=== PATIENT | female | born 1960 | race African-American/Black ===

== ENCOUNTER 2021-09-30 17:13 | Emergency (ER) | payer SELFPAY ==
[~2021-09-30] VITALS: Ht 160 cm; Wt 52.2 kg
[2021-09-30] MEDS ORDERED: ASPIRIN 81 MG CHEW TAB PO ONE (19:30)
[2021-09-30 19:34] LABS: BASOPHILS # (AUTO) 0.1 (0.0-0.1); BASOPHILS % 1.2 % (0.0-1.0); EOSINOPHILS # (AUTO) 0.1 (0.0-0.4); EOSINOPHILS % 1.5 % (0.0-6.0); HEMATOCRIT 35.2 % (34.2-44.1); HEMOGLOBIN 12.2 g/dL (12.0-16.0); LYMPHOCYTES # (AUTO) 1.7 (1.0-3.2); LYMPHOCYTES % 25.6 % (18.0-39.1); MEAN CORPUSCULAR HEMOGLOBIN 29.5 pg (28-32); MEAN CORPUSCULAR HGB CONC 34.7 g/dL (31-35); MONOCYTES # (AUTO) 0.5 (0.2-0.8); MONOCYTES % 6.8 % (4.4-11.3); NEUTROPHILS # (AUTO) 4.2 (2.1-6.9); NEUTROPHILS % 64.3 % (38.7-80.0); PLATELET COUNT 342 x10e3/uL (140-360); RED BLOOD COUNT 4.14 x10e6/uL (3.6-5.1)
[2021-09-30 19:36] LABS: CLARITY,URINE HAZY (CLEAR); COLOR,URINE YELLOW (YELLOW); KETONES,URINE NEGATIVE (NEGATIVE); LEUKOCYTE ESTERASE ,URINE NEGATIVE (NEGATIVE); NITRITE,URINE POSITIVE (NEGATIVE); PROTEIN,URINE DIPSTICK NEGATIVE (NEGATIVE); URINE UROBILINOGEN 0.2 mg/dL (0.2 - 1)
[2021-09-30 19:41] LABS: BACTERIA,URINE MANY /HPF; EPITHELIAL CELLS,URINE MODERATE /LPF
[2021-09-30 19:48] LABS: ALBUMIN 3.9 g/dL (3.5-5.0); ALBUMIN/GLOBULIN RATIO 1.1 (0.8-2.0); ANION GAP 16.8 mmol/L (8-16); CALCIUM 8.8 mg/dL (8.4-10.2); CREATININE, SERUM 0.59 mg/dL (0.57-1.11); POTASSIUM 3.8 mmol/L (3.5-5.1)
[2021-09-30 19:54] LABS: CREATINE KINASE MB 3.7 ng/mL (0-5.0)
[2021-09-30] MEDS ORDERED: CEPHALEXIN500 MG PO (21:11)
[2021-09-30 21:19] VITALS: BP 162/82
== END 2021-09-30 21:42 | disposition home or self-care (01) ==
LOC: ER 20:04
DX: F10.10 Alcohol abuse, uncomplicated (principal); R53.1 Weakness; N39.0 Urinary tract infection, site not specified; I10 Essential (primary) hypertension; E11.9 Type 2 diabetes mellitus without complications; F17.210 Nicotine dependence, cigarettes, uncomplicated
CPT/HCPCS: 36415; 70450; 71045; 80053; 80320; 81001; 82550; 82553; 84484; 85025; 93005; 99284